=== PATIENT | female | born 1980 | race Caucasian/White ===

== ENCOUNTER 2021-01-22 15:33 | Outpatient (REF) | payer OTHER, SELFPAY | END 2021-01-22 15:34 | disposition home or self-care (01) | LOC: HO.SCI 15:33 | PROVIDERS: Visit Provider Nurse Practitioner Family | DX: Z13.89 Encounter for screening for other disorder (principal) ==

== ENCOUNTER → 2021-02-28 12:46 | Outpatient (REF) | payer OTHER, SELFPAY | LOC: HO.SL 12:46 | PROVIDERS: Visit Provider Nurse Practitioner Family | DX: R53.83 Other fatigue (principal) | CPT/HCPCS: 95806 ==

== ENCOUNTER → 2021-06-21 11:21 | Outpatient (BNVA) | payer OTHER, SELFPAY | PROVIDERS: PCP Physician Assistant Medical; Visit Provider Nurse Practitioner Family ==

== ENCOUNTER → 2022-06-27 12:48 | Outpatient (BNVA) | payer OTHER, SELFPAY | PROVIDERS: PCP Physician Assistant Medical; Visit Provider Nurse Practitioner Family | DX: Z13.89 Encounter for screening for other disorder (principal) ==

== ENCOUNTER 2022-12-25 14:40 | Outpatient (AMB) | payer MEDICAID, SELFPAY ==
[2022-12-25 14:41] VITALS: BP 130/70; PULSE 94; O2SAT 98; BMI 37.8
--- NOTE | 2022-12-25 14:41 | MHC.OFFVIS ---
Intake Vital Signs 12/25/22 14:41 Height 5 ft 11 in Weight 271 lb BMI 37.8 BP 130/70 Blood Pressure Location Lt brachial Position Sitting Pulse 94 Pulse Source Pulse Oximeter Pulse Oximetry (%) 98 Oxygen Delivery Method Room Air Intake Visit Reasons: 6m follow up - Confirmed Intake Note: Pt presents as a 6 month f/u post concussive symptoms. Pt states she is doing good and has no concerns. Dolly Pusher Required: No Allergies No Known Allergies Allergy (Verified 12/25/22 14:45) Medication List - Last Reconciled 12/25/22 by ТАТЬЯНА [place] amitriptyline 10 mg PO BEDTIME 30 days ibuprofen 600 mg PO Q8H PRN 30 days HPI HPI Comments History of Present Illness Details 42-yr-old female presents for f/u visit. Pt denies any significant interval medical changes. Pt reports she is having 2-3 headache days per month now. Ibuprofen is helpful so she stopped sumatriptan. She is asking if we can help her w/ her left hearing aide- it is not working well and her previous title closer closed. [facility] Surgical History Hx of appendectomy Social History (Updated 12/25/22 @ 14:46 by Elizabeth Lake CMA) Alcohol intake: current Alcohol intake frequency: holidays/special occasions only Patient Tobacco Use Status: Never used Tobacco Review of Systems Const All systems reviewed & are unremarkable except as noted in HPI and below Physical Exam Vital Signs: Last Vital Signs Pulse 94 12/25/22 14:41 BP 130/70 12/25/22 14:41 Pulse Ox 98 12/25/22 14:41 Oxygen Delivery Method Room Air 12/25/22 14:41 BMI result Body Mass Index 37.8 Const General: cooperative and no acute distress Orientation/consciousness: patient oriented x3 HEENT Head: Yes normocephalic Resp Effort & Inspection: normal respiratory effort and able to speak in complete sentences Neuro General: patient oriented x3, gait normal and CN's II-XI intact bilaterally (w/ exception of left [place] ) Cognition (Neuro): normal cognition Motor exam (neuro): 5/5 motor strength present throughout Psych Appearance: grossly normal Mental Status: mental status grossly normal Speech and movement: Normal speech and movement present Affect: normal affect Attitude: cooperative Thought process: Normal thought process present Thought content: Normal thought content present Insight: Good insight present (Psych) Judgement: Good judgement present (Psych) Assessment & Plan Assessment & Plan (1) Migraine without aura: Code(s): G43.009 - Migraine without aura, not intractable, without status migrainosus (2) Hearing loss in left ear: Code(s): H91.92 - Unspecified hearing loss, left ear (3) Postconcussive syndrome: Code(s): F07.81 - Postconcussional syndrome Plan Continue Amitriptyline 10mg qhs.? Continue prn Ibuprofen. Pt stopped Sumatriptan. Will take the liberty of referring pt for audiology consult to address her left hearing aide issues. f/u in 6 months or sooner prn. Orders: Referrals Audiology Referral H91.92 - Unspecified hearing loss, left ear Medications: Refilled ibuprofen 600 mg PO Q8H PRN 30 tabs 6RF pain 30 days amitriptyline 10 mg PO BEDTIME 30 tabs 6RF 30 days Coding Level of Care Code Est Pt Level 4 (35969) Diagnoses Migraine without aura G43.009 Hearing loss in left ear H91.92 Postconcussive syndrome F07.81
== END 2022-12-25 15:04 | disposition home or self-care (01) ==
PROVIDERS: Visit Provider Nurse Practitioner Family
DX: G43.009 Migraine without aura, not intractable, without status migrainosus (principal); H91.92 Unspecified hearing loss, left ear; F07.81 Postconcussional syndrome
CPT/HCPCS: 99214

== ENCOUNTER → 2022-12-25 14:40 | Outpatient (BNVA) | payer MEDICAID, SELFPAY | PROVIDERS: Visit Provider Nurse Practitioner Family | DX: Z46.1 Encounter for fitting and adjustment of hearing aid (principal); H91.92 Unspecified hearing loss, left ear; G43.009 Migraine without aura, not intractable, without status migrainosus; F07.81 Postconcussional syndrome | CPT/HCPCS: 99214 ==

== ENCOUNTER 2023-07-01 13:30 | Outpatient (REF) | payer MEDICAID, SELFPAY ==
--- NOTE | ~2023-07-01 | XR_ITS ---
EXAMINATION: XR CERVICAL SPINE CLINICAL INFORMATION: Neck pain. COMPARISON: None available. TECHNIQUE: 7 views of the cervical spine inclusive of flexion and extension views. FINDINGS: Slight reversal of the normal cervical lordosis. Multilevel cervical spondylosis with moderate loss of disc space height at C5-C6 and C6-C7. Facet hypertrophy with neural foraminal encroachment on the right at C5-C6 and C6-C7 and on the left at C6-C7. XR/XR cervical spine min 6V IMPRESSION: Multilevel cervical spondylosis most notable at C5-C6 and C6-C7.
== END 2023-07-01 13:31 | disposition home or self-care (01) ==
LOC: HO.XRAY 13:30
PROVIDERS: PCP Physician Assistant Medical; Visit Provider Nurse Practitioner Family
DX: F07.81 Postconcussional syndrome (principal); M54.2 Cervicalgia; G43.009 Migraine without aura, not intractable, without status migrainosus; Z79.899 Other long term (current) drug therapy
CPT/HCPCS: 72052; 99212

== ENCOUNTER 2023-07-01 13:30 | Outpatient (AMB) | payer MEDICAID, SELFPAY ==
[2023-07-01 13:34] VITALS: BP 140/84; PULSE 64; O2SAT 99; BMI 37.1
--- NOTE | 2023-07-01 13:34 | MHC.OFFVIS ---
Intake Vital Signs 07/01/23 13:34 Height 5 ft 11 in Weight 266 lb 6 oz BMI 37.1 BP 140/84 H Blood Pressure Location Rt brachial Position Sitting Pulse 64 Pulse Source Pulse Oximeter Pulse Oximetry (%) 99 Intake Visit Reasons: 6m follow up-Conf Intake Note: Patient presents for 6 month follow up. I'm getting like burning feeling in the area on my head where I had my accident Allergies No Known Allergies Allergy (Verified 07/01/23 13:37) Medication List - Last Reconciled 07/01/23 by ТАТЬЯНА [place] amitriptyline 10 mg PO BEDTIME 30 days ibuprofen 600 mg PO Q8H PRN 30 days HPI HPI Comments History of Present Illness Details 42-yr-old female presents for f/u visit. Pt denies any significant interval medical changes. In the past couple of months, she has been having episodes of right parietal region burning sensation, which can last all day. A/w dizziness, photophobia, nausea. It feels like the accident she had previously, just happened. Has occurred once a week in the past month. Has neck tightness. At times can have shooting pain down RUE. Denies weakness. She has not tried anything for this- as wasn't sure if this was a headache. She is having 1 migraine attack per week, which is responsive to Ibuprofen and cooling cap. Amitriptyline is still helpful. [facility] Surgical History Hx of appendectomy Social History Alcohol intake: current Alcohol intake frequency: holidays/special occasions only Patient Tobacco Use Status: Never used Tobacco Physical Exam Vital Signs: Last Vital Signs Pulse 64 07/01/23 13:34 BP 140/84 H 07/01/23 13:34 Pulse Ox 99 07/01/23 13:34 BMI result Body Mass Index 37.1 Const General: cooperative and no acute distress Orientation/consciousness: patient oriented x3 Resp Effort & Inspection: normal respiratory effort and able to speak in complete sentences Neuro Other: Limited cervical ROM, patti in extension Bilateral posterior and lateral cervical tightness. Negative sánchez Spurling test. DTRs 1+ throughout. MS 5/5 throughout. General: patient oriented x3 Cranial nerves: Yes CN's II-XII intact bilaterally Cognition (Neuro): normal cognition Psych Appearance: grossly normal Mental Status: mental status grossly normal Speech and movement: Normal speech and movement present Affect: normal affect Attitude: cooperative Assessment & Plan Assessment & Plan (1) Postconcussive syndrome: Code(s): F07.81 - Postconcussional syndrome (2) Headache: Comment: right parietal burning pain w/ migraine features. ? cervicogenic, ? myofascial/muscle spasm, ? migraine Code(s): R51.9 - Headache, unspecified (3) Cervicalgia: Code(s): M54.2 - Cervicalgia (4) Migraine without aura: Code(s): G43.009 - Migraine without aura, not intractable, without status migrainosus Plan For migraine: Continue Amitriptyline 10mg qhs.? Continue prn Ibuprofen. For right parital burning headache: Trial Baclofen 5-10mg qhs prn. Retrial Sumatriptan. May try Ibuprofen prn. C-spine XR- 4 views and w/ f/ex/ext- pt to doa t [facility]. PT eval & tx- order slip given to Pt- MEL[address], [facility]. f/u in 3-4 months or sooner prn. Orders: Orders XR cervical spine 4V Today M54.2 - Cervicalgia XR cervical spine w flex/ext Today M54.2 - Cervicalgia PT Evaluation and Treatment Today G43.009 - Migraine without aura, not intractable, without status migrainosus, M54.2 - Cervicalgia, R51.9 - Headache, unspecified Medications: New sumatriptan succinate (0.5 - 1 x 100 mg) 50 - 100 mg orally at onset of headache, may repeat in 2 hrs PRN; max 2 tabs per day or 4 tabs/week (may take with Ibuprofen) 30 days 12 tabs 6RF migraine headache baclofen and burning headache 5 - 10 mg (1 - 2 x 5 mg) PO BEDTIME 30 days PRN 60 tabs 1RF muscle spasm Coding Level of Care Code Est Pt Level 4 (38298) Diagnoses Postconcussive syndrome F07.81 Headache R51.9 Cervicalgia M54.2 Migraine without aura G43.009
== END 2023-07-01 14:02 | disposition home or self-care (01) ==
PROVIDERS: PCP Physician Assistant Medical; Visit Provider Nurse Practitioner Family
DX: G44.309 Post-traumatic headache, unspecified, not intractable (principal); F07.81 Postconcussional syndrome; M54.2 Cervicalgia
CPT/HCPCS: 99214

== ENCOUNTER 2023-10-31 12:38 | Outpatient (AMB) | payer MEDICAID, SELFPAY ==
--- NOTE | 2023-10-31 13:03 | A.OFFVIS_ITS ---
Vital Signs 10/31/23 13:04 Height 5 ft 11 in Weight 268 lb BMI 37.4 Intake Visit Reasons: 4m follow up-CONF Intake Note: Patient presents for 4 month follow up. has a mild headache for the past 2 days. Beveller Operator Required: Yes Beveller Operator Name: satinder johnson Allergies No Known Allergies Allergy (Verified 10/31/23 13:08) Medication List - Last Reconciled 10/31/23 by ТАТЬЯНА [place] amitriptyline 10 mg PO BEDTIME 30 days baclofen 5 - 10 mg (1 - 2 x 5 mg) PO BEDTIME PRN 30 days ibuprofen 600 mg PO Q8H PRN 30 days sumatriptan succinate 50 - 100 mg orally at onset of headache, may repeat in 2 hrs PRN; max 2 tabs per day or 4 tabs/week (may take with Ibuprofen) 30 days HPI Comments Details: []-yr-old [female][male] presents for f/u visit. Pt denies any significant interval medical changes. Pt states overall she has been stable. Amitriptyline helps, but can make her sleepy some days. Baclofen has helped the right parietal region pain. However, she has had a more intense headache in the last 2 days- thinks it is d/t the recent heat wave and has run out of her Ibuprofen. She did C-spine x-ray- Multilevel cervical spondylosis most notable at C5-C6 and C6-C7. She did not do PT- lost the order slip. She is generally photophobic and asks for [facility] vehicle tint waiver form to be completed. [facility] Surgical History Hx of appendectomy Social History Alcohol intake: current Alcohol intake frequency: holidays/special occasions only Patient Tobacco Use Status: Never used Tobacco Physical Exam Vital Signs: BMI result Body Mass Index 37.4 Const General: cooperative and no acute distress Orientation/consciousness: patient oriented x3 Resp Effort & Inspection: normal respiratory effort and able to speak in complete sentences Neuro Other: Photophobic General: patient oriented x3 Cranial nerves: Yes CN's II-XII intact bilaterally Cognition (Neuro): normal cognition Psych Appearance: grossly normal Mental Status: mental status grossly normal Speech and movement: Normal speech and movement present Affect: normal affect Attitude: cooperative Assessment & Plan Assessment & Plan (1) Cervicalgia: Code(s): M54.2 - Cervicalgia Category: Medical (2) Migraine without aura: Code(s): G43.009 - Migraine without aura, not intractable, without status migrainosus Category: Medical (3) Headache: Comment: right parietal burning pain w/ migraine features. ? cervicogenic, ? myofascial/muscle spasm, ? migraine Code(s): R51.9 - Headache, unspecified Category: Medical (4) Postconcussive syndrome: Code(s): F07.81 - Postconcussional syndrome Category: Medical Plan For migraine: Continue Amitriptyline 10mg qhs.? Continue prn Ibuprofen. Continue Sumatripatn 100mg prn. Max 200mg/day. May take w/ Ibuprofen. ? For right parietal burning headache: Continue Baclofen 5-10mg qhs prn. Continue Ibuprofen prn. C-spine XR- Multilevel cervical spondylosis most notable at C5-C6 and C6-C7. Again try PT eval & tx- new order slip given to Pt- MELODY [facility]. Info shared on [employer] blue light filtering glasses. [facility] vehicle tint waiver form to be completed. ? f/u in 6 months or sooner prn. Medications: Refilled ibuprofen 600 mg PO Q8H 30 days PRN 30 tabs 6RF pain Coding Level of Care Code Est Pt Level 4 (71393) Diagnoses Cervicalgia M54.2 Migraine without aura G43.009 Headache R51.9 Postconcussive syndrome F07.81
[2023-10-31 13:04] VITALS: BMI 37.4
== END 2023-10-31 13:35 | disposition home or self-care (01) ==
PROVIDERS: PCP Physician Assistant Medical; Visit Provider Nurse Practitioner Family
DX: M54.2 Cervicalgia (principal); G43.009 Migraine without aura, not intractable, without status migrainosus; R51.9 Headache, unspecified; F07.81 Postconcussional syndrome
CPT/HCPCS: 99214

== ENCOUNTER → 2023-10-31 12:38 | Outpatient (BNVA) | payer MEDICAID, SELFPAY | PROVIDERS: PCP Physician Assistant Medical; Visit Provider Nurse Practitioner Family | DX: R51.9 Headache, unspecified (principal); G43.009 Migraine without aura, not intractable, without status migrainosus; M54.2 Cervicalgia; F07.81 Postconcussional syndrome | CPT/HCPCS: 99212 ==